=== PATIENT | female | born 1955 | race Two or more races ===

== ENCOUNTER 2019-02-27 15:05 | Emergency (ER) | payer OTHER, MEDICAID ==
[~2019-02-27] VITALS: Ht 154.9 cm; Wt 63.5 kg
[~2019-02-27 15:05] MED LIST: DICL-176; HYDR-1421; INSU70IN9; METF-370; [UNRECOGNIZED DRUG - CODE]
[2019-02-27 16:14] LABS: Basophils # (auto) 0 uL; Basophils % (auto) 0.3 % (0.0-2.0); Eosinophils # (auto) 0.1 uL; Eosinophils % (auto) 1.7 % (0.0-7.0); Hematocrit 44.3 % (36.0-46.0); Hemoglobin 14.5 g/dL (12.2-16.2); Lymphocytes # (auto) 1.3 uL; Lymphocytes % (auto) 17.4 % (10.0-50.0); Mean Corpuscular Hemoglobin 28.1 pg (28.0-32.0); Mean Corpuscular Hgb Conc. 32.7 g/dL (32.0-36.0); Monocytes # (auto) 0.4 uL; Monocytes % (auto) 5.5 % (0.0-12.0); Neutrophils # (auto) 5.5 uL; Neutrophils % (auto) 75.1 % (37.0-80.0); Platelet Count (auto) 254 10^3/uL (140-450); Red Blood Cells 5.15 10^6/uL (4.0-5.20); Red Cell Distribution Width 16.1 % (11.8-14.3); White Blood Cell 7.3 10^3/uL (4.4-10.8)
[2019-02-27 16:18] LABS: Potassium 3.8 mmol/L (3.5-5.1)
[2019-02-27 16:29] LABS: Albumin 3.8 g/dL (3.4-5.0); BUN/Creatinine Ratio 17.6; Bilirubin, Total 0.3 mg/dL (0.2-1.0); Calcium 8.5 mg/dL (8.5-10.1); Total Protein 7.6 g/dL (6.4-8.2)
[2019-02-27 17:04] LABS: INR 0.93 (0.9-1.15); Partial Thromboplastin Time 26.1 sec (23.78-33.04)
[2019-02-27 18:00] VITALS: BP 133/65
== END 2019-02-27 18:12 | disposition home or self-care (01) ==
LOC: ER 15:05
DX: R10.84 Generalized abdominal pain (principal); E11.9 Type 2 diabetes mellitus without complications; I10 Essential (primary) hypertension; Z48.01 Encounter for change or removal of surgical wound dressing; Z90.49 Acquired absence of other specified parts of digestive tract
CPT/HCPCS: 36415; 74176; 80053; 82150; 83690; 85025; 85610; 85730

== ENCOUNTER 2019-06-22 13:09 | Emergency (ER) | payer OTHER, MEDICAID ==
[~2019-06-22] VITALS: Ht 154.9 cm; Wt 61.2 kg
[2019-06-22 13:27] VITALS: BP 152/77
[2019-06-22] MEDS ORDERED: ACETAMINOPHEN 325 MG TAB PO ONE (14:45)
[2019-06-22] MEDS ORDERED: KETOROLAC TROMETH 15 mg/ml 1ML VL IM ONE (16:30)
== END 2019-06-22 16:49 | disposition home or self-care (01) ==
LOC: ER 13:09
DX: M25.512 Pain in left shoulder (principal); G89.29 Other chronic pain; E11.9 Type 2 diabetes mellitus without complications; I10 Essential (primary) hypertension; Z88.6 Allergy status to analgesic agent
CPT/HCPCS: 73030; 93005; 96372; 99283; J1885

== ENCOUNTER 2022-07-29 20:01 | Emergency (ER) | payer OTHER, MEDICAID ==
[~2022-07-29] VITALS: Ht 160 cm; Wt 65.0 kg
[~2022-07-29 20:01] MED LIST changes: -DICL-176; +DICL75TA3
[2022-07-29 20:10] VITALS: BP 146/76
== END 2022-07-30 04:36 | disposition home or self-care (01) ==
LOC: ER 20:01 → EDBD 20:01 → ER 07-30 04:36
DX: M25.552 Pain in left hip (principal); I10 Essential (primary) hypertension; E11.9 Type 2 diabetes mellitus without complications; Z90.49 Acquired absence of other specified parts of digestive tract; Z79.4 Long term (current) use of insulin; Z79.899 Other long term (current) drug therapy; Z88.5 Allergy status to narcotic agent; Z88.8 Allergy status to other drugs, medicaments and biological substances; W18.39XA Other fall on same level, initial encounter; Y93.89 Activity, other specified; Y92.89 Other specified places as the place of occurrence of the external cause; Y99.8 Other external cause status
CPT/HCPCS: 72192